=== PATIENT | male | born 1950 | race Caucasian/White ===

== ENCOUNTER 2022-12-21 20:37 | Emergency (ER) | payer SELFPAY ==
[~2022-12-21] VITALS: Ht 182.9 cm; Wt 95.3 kg
--- NOTE | 2022-12-21 20:39 | NUR ---
PT BROUGHT TO BED 8 VIA TIFFANIE PACHECO
[2022-12-21 20:40] VITALS: BP 128/80
--- NOTE | 2022-12-21 21:10 | NUR ---
pm technician by bedside collecting labs.
--- NOTE | 2022-12-21 21:18 | NUR ---
Pt taken to CT
[2022-12-21 21:21] LABS: BASOPHILS # (AUTO) 0.1 K/uL (0.00-0.22); BASOPHILS % (AUTO) 1.2 % (0.0-2.0); EOSINOPHILS # (AUTO) 0.2 K/uL (0-0.4); EOSINOPHILS % (AUTO) 2.6 % (0.0-4.0); HEMATOCRIT 37.2 % (36-52); HEMOGLOBIN 13.1 g/dL (12.0-18.0); LYMPHOCYTES # (AUTO) 1.5 K/uL (2.0-11.5); LYMPHOCYTES % (AUTO) 24.6 % (20.5-51.1); MEAN CORPUSCULAR HEMOGLOBIN 37 pg (27-31); MEAN CORPUSCULAR HGB CONC 35 g/dL (33-37); MEAN CORPUSCULAR VOLUME 104.9 fL (80-94); MONOCYTES # (AUTO) 1.1 K/uL (0.8-1.0); MONOCYTES % (AUTO) 18.9 % (1.7-9.3); NEUTROPHILS # (AUTO) 3.2 K/uL (1.8-7.7); NEUTROPHILS % (AUTO) 52.7 % (42.2-75.2); PLATELET COUNT (AUTO) 274 K/uL (140-450); RED BLOOD CELL COUNT(AUTO) 3.55 MIL/uL (4.20-6.10); RED CELL DISTRIBUTION WIDTH 12.4 % (11.6-13.7)
--- NOTE | 2022-12-21 21:30 | NUR ---
Pt returned from CT
[2022-12-21 21:43] LABS: ALBUMIN 3.5 g/dL (3.4-5.0); ANION GAP 15.2 (8-16); ASPARTATE AMINOTRANSFERASE 28 U/L (15-37); CARBON DIOXIDE 22.6 mmol/L (21-32); CHLORIDE 104 mmol/L (98-107); CREATININE 0.8 mg/dL (0.6-1.3); GLUCOSE 106 mg/dL (74-106); POTASSIUM 3.8 mmol/L (3.5-5.1); SODIUM SERUM 138 mmol/L (136-145); TOTAL BILIRUBIN 0.2 mg/dL (0.0-1.0); UREA NITROGEN, BLOOD 7 mg/dL (7-18)
--- NOTE | 2022-12-22 | NUR ---
Pt awake at this time, ambulated to restroom with gait steady. No c/o discomfort.
[2022-12-22 00:13] VITALS: BP 134/80
--- NOTE | 2022-12-22 00:13 | NUR ---
Patient discharged with v/s stable. Written and verbal after care instructions given and explained. Patient verbalized understanding. Ambulatory with steady gait. Pt took an uber ride home. All questions addressed prior to discharge. Advised to follow up with PMD.
== END 2022-12-22 00:13 | disposition home or self-care (01) ==
LOC: MED 20:37
DX: S09.90XA Unspecified injury of head, initial encounter (principal); F10.129 Alcohol abuse with intoxication, unspecified; Y90.9 Presence of alcohol in blood, level not specified; W18.30XA Fall on same level, unspecified, initial encounter; Y93.89 Activity, other specified; Y92.89 Other specified places as the place of occurrence of the external cause; Y99.8 Other external cause status
CPT/HCPCS: 36415; 70450; 72125; 80053; 85025; 99284; G0482